=== PATIENT | male | born 1995 | race Caucasian/White ===

== ENCOUNTER 2018-03-04 03:03 | Emergency (ER) | payer BC ==
[2018-03-04] MEDS ORDERED: Sodium Chloride 0.9% 1,000 ML IV SCH (03:15)
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
[2018-03-04] MEDS ORDERED: Ondansetron 4 MG/2 ML SDV IVPUSH ONE (03:19)
== END 2018-03-04 07:10 | disposition home or self-care (01) ==
LOC: JD.ED 03:03
DX: F10.120 Alcohol abuse with intoxication, uncomplicated (principal); Y90.1 Blood alcohol level of 20-39 mg/100 ml
CPT/HCPCS: 36415; 80053; 85025; 96361; 96374; 99285; G0480; J2405; J7040

== ENCOUNTER 2018-07-02 15:10 | Emergency (ER) | payer BC | END 2018-07-02 15:40 | disposition left against medical advice (07) | LOC: JD.ED 15:10 | DX: Z53.21 Procedure and treatment not carried out due to patient leaving prior to being seen by health care provider (principal) ==